=== PATIENT | female | born 1995 | race Caucasian/White ===

== ENCOUNTER 2016-06-19 05:48 | Emergency (ER) | payer OTHER ==
[~2016-06-19] VITALS: Ht 157.5 cm; Wt 55.7 kg
[~2016-06-19 05:48] MED LIST: BCPILLS PO; ONDA4TAB46 PO; SULF800T23 PO
[2016-06-19 05:53] VITALS: TEMP 36.6; Ht 157.5 cm; Wt 55.7 kg
[2016-06-19 05:56] VITALS: O2SAT 99
[2016-06-19 06:56] LABS: BUN/CREATININE RATIO 9.8 (10-20); CALCIUM 8.7 mg/dl (8.5-10.1); CREATININE 0.84 mg/dl (0.60-1.20); POTASSIUM 3.6 mmol/L (3.5-5.1)
[2016-06-19 12:57] VITALS: BP 116/73; PULSE 83; O2SAT 100
--- NOTE | 2016-06-19 16:20 | EMERGENCY ROOM VISIT NOTE ---
ED Visit Note Emergency Department Note Ms. Miller's care was transferred to me from Corinne Guzman PA-C at the end of her shift pending further evaluation of her alcohol intoxication. Historically patient was brought to the emergency department by friends who were concerned about the patient and overuse of alcohol. There was no reported history of trauma. Laboratory tests revealed an alcohol level of 320 mg/dL. Patient was reassessed multiple times during her stay in the emergency department. She did wake up approximately 6 hours after arrival into the emergency department. I was notified and went to assess the patient and she was crying. She does go on to report that she was drinking beer and liquor last night. She denied any illicit drug use. She does not remember any falls. She also goes on to report that she has been sad lately; when I question lately she reports since December of last year. She reports she has been trying to get into counseling at [place] without success. She frankly denies suicidal or homicidal ideation. In addition school stress she also reported that there was a significant amount of family stress. On my initial evaluation she had no physical complaints including headache, dizziness, lightheadedness, neck pain, chest pain, back pain, abdominal pain, nausea, vomiting. Physical Examination: Vital Signs: Date Time Temp Pulse Resp B/P Pulse Ox O2 Delivery O2 Flow Rate FiO2 06/19/16 12:57 83 16 116/73 100 06/19/16 10:57 83 16 103/68 97 Room Air 06/19/16 09:57 83 06/19/16 09:46 84 16 102/64 97 Room Air 06/19/16 08:22 89 16 104/59 99 Room Air 06/19/16 07:22 85 16 105/58 100 Room Air 06/19/16 05:56 99 Room Air 06/19/16 05:56 97 06/19/16 05:53 36.6 103 18 118/84 99 Room Air General: 20 year old white female in no acute distress, afebrile and hemodynamically stable. Neurological: Awake, alert and oriented 3. Answering questions appropriately and following commands. No full motor or sensory deficits. Good short-term and long-term recall. Cranial nerves II through XII grossly intact. Skin: Warm dry and pink without signs of trauma. HEENT: Atraumatic and normocephalic. No facial trauma. PERRLA. EOMI without nystagmus. No malocclusion. No intraoral trauma. Airway patent. Speech is clear and normal. No JVD. Trachea midline. Back: No tenderness over the cervical, thoracic or lumbar bony spine. No CVA tenderness. Chest: Lung sounds clear to auscultation and equal bilaterally with symmetrical chest wall movements. Abdomen: Soft, nondistended and nontender. Bowel sounds are present in all quadrants. No organomegaly or, rigidity, rebound tenderness, guarding or masses. Extremities: Moves all extremities well on command and with purpose. Distal neurovascular statuses are intact and equal bilaterally. ED Course: Patient is assessed as noted above. Laboratory Testing: Test 06/19/16 06:21 06/19/16 06:25 Range/Units Sodium Level 145 136-145 mmol/L Potassium Level 3.6 3.5-5.1 mmol/L Chloride Level 112 98-107 mmol/L Carbon Dioxide Level 22 21-32 mmol/L Anion Gap 11.0 3-11 mmol/L Blood Urea Nitrogen 8 7-18 mg/dl Creatinine 0.84 0.60-1.20 mg/dl Est Creatinine Clear Calc Drug Dose 84.5 ml/min Estimated GFR () 116.0 Estimated GFR (Non- 100.1 BUN/Creatinine Ratio 9.8 10-20 Random Glucose 108 70-99 mg/dl Calcium Level 8.7 8.5-10.1 mg/dl Ethyl Alcohol mg/dL 321.0 0-3 mg/dl Bedside Glucose 110 70-90 mg/dl Patient was reassessed multiple times during her stay in the emergency department. Patient's case was consulted with the psychiatric machine adjuster leader case trim, Kristen, she assessed the patient and made recommendations for outpatient follow-up for her sadness. Patient was educated about tonight's findings and instructed on her treatment plan; she verbalizes understanding and agreement with this plan. Clinical Impression: Acute alcohol intoxication. Depression. Disposition: She was discharged accompanied by a sober female friend who will keep a good eye on her. Prior to departure she was able to ambulate, go to the bathroom and eat/drink without difficulty. Plan: STOP DRINKING ETOH. Patient was encouraged to use ibuprofen or acetaminophen as needed for pain. Patient was encouraged to increase clear fluids for the next 4-5 days to 4-5 quarts to maintain hydration. Patient was encouraged to followup with [facility] for alcohol counseling. Patient was encouraged to follow-up with outpatient recommendations for her sadness. Patient was encouraged return ED for uncontrolled pain, vomiting, worsening sadness or any new/concerning symptoms.
--- NOTE | 2016-06-19 21:27 | EMERGENCY ROOM VISIT NOTE ---
History First contact with patient: 05:56 Chief Complaint: ALCOHOL OVERDOSE Stated Complaint: INTOXICATED Nursing Triage Summary: pt brought in by friend, pt admits to drinking to much beer, denies any drugs, injury or any other complaints. History of Present Illness The patient is a 20 year old female who presents to the Emergency Room with complaints of alcohol intoxication. Patient drank a lot of alcohol and has been vomiting. No drugs. Patient denies chest pain, dyspnea, abdominal pain or any other medical complaints. No fall. Review of Systems See HPI for pertinent positives & negatives. A total of 10 systems reviewed and were otherwise negative. Past Medical/Surgical History anxiety Social History Smoking Status: Never Smoker Alcohol Use: occasionally Drug Use: none Occupation Status: [employer] student Current/Historical Medications Scheduled Control Pills ( Control Pills), 1 TAB PO DAILY Allergies Coded Allergies: Penicillins (Verified Allergy, Mild, rash, hives, 06/19/16) Physical Exam Vital Signs Date Time Temp Pulse Resp B/P Pulse Ox O2 Delivery O2 Flow Rate FiO2 06/19/16 12:57 83 16 116/73 100 06/19/16 10:57 83 16 103/68 97 Room Air 06/19/16 09:57 83 06/19/16 09:46 84 16 102/64 97 Room Air 06/19/16 08:22 89 16 104/59 99 Room Air 06/19/16 07:22 85 16 105/58 100 Room Air 06/19/16 05:56 99 Room Air 06/19/16 05:56 97 06/19/16 05:53 36.6 103 18 118/84 99 Room Air Physical Exam PHYSICAL EXAM: VITALS: Vitals are noted on the nurse's note and reviewed by myself. Vital signs stable. GENERAL: White female with EtOH odor, in no acute distress, nondiaphoretic, well -developed well-nourished. The patient is visibly intoxicated. SKIN: The skin was without obvious lacerations, abrasions, or rashes. There is no tenting of the skin. Capillary reflex less than 2 seconds. HEENT: Normocephalic, atraumatic. PERRLA. EOMI. Conjunctiva with mild injection without icterus. Tympanic membranes without erythema or effusion bilaterally no hemotympanum. External auditory canals are clear. Nares patent bilaterally. No epistaxis. Oropharynx without erythema or exudate. Uvula midline. Oral mucosal moist. No lymphadenopathy. Neck is supple without cervical spine tenderness. HEART: Regular rate and rhythm without murmurs gallops or rubs. Peripheral pulses 2+. LUNGS: Clear to auscultation bilaterally without wheezes, rales or rhonchi. ABDOMEN: Positive bowel sounds x 4. Normal tympanic percussion. Soft, nontender, without masses or organomegaly. MUSCULOSKELETAL: Gross motor function of the upper and lower extremities intact. The patient has a staggering gait. NEUROLOGIC: The patient is visibly intoxicated. Once they were more sober they were alert and oriented to person place and time. Medical Decision & Procedures Laboratory Results 06/19/16 06:21 Test 06/19/16 06:21 06/19/16 06:25 Anion Gap 11.0 mmol/L (3-11) Est Creatinine Clear Calc Drug Dose 84.5 ml/min Estimated GFR () 116.0 Estimated GFR (Non- 100.1 BUN/Creatinine Ratio 9.8 (10-20) Calcium Level 8.7 mg/dl (8.5-10.1) Ethyl Alcohol mg/dL 321.0 mg/dl (0-3) Bedside Glucose 110 mg/dl (70-90) ED Course Prior records/ancillary studies reviewed. Triage Nursing notes reviewed. Additional history obtained from friends. The patient's history was concerning for altered mental status and a possible alcohol overdose. Differential diagnosis: Etiologies such as alcohol intoxication, toxicologic, infection, hypoglycemia, electrolyte abnormalities, cardiac sources, intracerebral event, neurologic, as well as others were entertained. Physical examination: As above. The patient is clinically intoxicated. no trauma noted. ER treatment provided: Monitoring Aspiration precautions The patient was frequently reassessed. Diagnostic interpretation by me: Cardiac monitoring did not reveal any evidence of dysrhythmia. The labs revealed no worrisome electrolyte abnormality. The patient's blood alcohol level was 321 mg/dL. The patient's history was reviewed once they were more coherent and their intoxication cleared. The patient states they have been in good health recently and had no medical complaints. The patient admitted to consuming alcohol. No additional concerning findings were noted. The patient complained of no symptoms to suggest assault. This appears to be consistent with an isolated overdose of alcohol. By the evaluation outlined above emergent etiologies such as trauma, infection, hypoglycemia, electrolyte abnormalities, cardiac sources, intracerebral event, neurologic,as well as others were deemed relatively unlikely. The patient was informed about the findings as listed above. The patient was counseled on the dangers of excessive alcohol use. I gave my usual and customary discussion regarding this issue. All questions were answered and the patient was pleased with the treatment. Return instructions were outlined and the patient was discharged in stable condition once their mental status improved and a safe destination was confirmed. Case was signed out to Victoriano Taveras PA-C pending patient sobering up and reevaluation in stable condition. Medical Decision as above Impression Primary Impression: Alcohol use with intoxication Departure Information Dispostion Home / Self-Care Condition GOOD Referrals No Doctor, Assigned (PCP) Patient Instructions My [facility] Additional Instructions Keep well-hydrated. Tylenol every 6 hours as needed for pain (Maximum 3000 mg Tylenol in 24 hr period). Follow up with family doctor and/or health services as needed. No driving for the next 24 hours. Recommend no alcohol for the next 48 hours and avoid binge drinking in the future. Return to ER sooner for chest pain, abdominal pain, worsening signs or symptoms or as needed.
== END 2016-06-19 13:21 | disposition home or self-care (01) ==
LOC: C.EDB 05:49 → C.EDA 13:21
DX: F10.129 Alcohol abuse with intoxication, unspecified (principal); Y90.8 Blood alcohol level of 240 mg/100 ml or more; F32.9 Major depressive disorder, single episode, unspecified; Z79.3 Long term (current) use of hormonal contraceptives